=== PATIENT | female | born 1955 | race Caucasian/White ===

== ENCOUNTER 2018-12-29 12:27 | Emergency (ER) | payer OTHER ==
[~2018-12-29] VITALS: Ht 160 cm; Wt 52.5 kg
[2018-12-29 12:28] VITALS: BP 126/73
[2018-12-29] MEDS ORDERED: MULTCAP PO (12:34)
--- NOTE | 2018-12-29 14:02 | REP ---
Left foot series: Four views. History: Injury. Findings: Four views of the left foot demonstrate two metallic screws in the distal fibula abutting the adjacent distal tibia. There is diffuse osteopenia. There is no evidence of acute fracture or subluxation. Impression: Distal fibular pins abutting the distal tibia. Diffuse osteopenia. No fracture seen. Electronically Signed by Lyndon Kamara MD 12/29/2018 08:59 P
== END 2018-12-29 13:56 | disposition home or self-care (01) ==
LOC: M ED 12:27
DX: S90.32XA Contusion of left foot, initial encounter (principal); W20.8XXA Other cause of strike by thrown, projected or falling object, initial encounter; Y92.234 Operating room of hospital as the place of occurrence of the external cause; Y99.0 Civilian activity done for income or pay; Z88.0 Allergy status to penicillin